=== PATIENT | female | born 2005 | race Caucasian/White ===

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

== ENCOUNTER 2023-07-06 12:14 | Emergency (ER) | payer BC, SELFPAY ==
--- NOTE | ~2023-07-06 | XR_ITS ---
XR hip LT min 2V 07/06/2023 12:58 INDICATION: Left hip pain after fall PROCEDURE: 2 views left hip COMPARISON: No prior studies for comparison. FINDINGS: Fracture, dislocation or subluxation is not identified. The soft tissues appear within norm al limits. No foreign bodies are identified. IMPRESSION: 1: NO ACUTE BONE OR JOINT ABNORMALITY IDENTIFIED. Reviewed, dictated and finalized at location B.
[2023-07-06 12:26] VITALS: BP 106/63; PULSE 87; RESP 16; TEMP 36.6; O2SAT 100
[2023-07-06 12:29] VITALS: BP 106/63; PULSE 87; RESP 16; TEMP 36.6; O2SAT 100
--- NOTE | 2023-07-06 12:46 | ED.FALL ---
HPI - Fall General Chief Complaint: Fall Stated Complaint: fell at work, left hip and back pain Time Seen by Provider: 07/06/23 12:38 Source: patient and RN notes reviewed Mode of arrival: ambulatory Limitations: no limitations History of Present Illness HPI Narrative: Patient presents today complaining of left low back pain and left hip pain. She slipped in a puddle of water yesterday while at work and fell onto her left side. States her low back did not start hurting until today. Denies numbness or tingling in the legs or genitalia. Denies loss of bowel or bladder control. Denies radiation of the pain. She currently rates her pain 7/10 and has been taking ibuprofen and using a heating pad without relief. Pain increases with movement. Related Data Home Medications Medication Instructions Recorded Confirmed medroxyprogesterone 150 mg/mL 150 mg IM [id number] 11/05/21 07/06/23 intramuscular suspension escitalopram oxalate 20 mg tablet 20 mg PO DAILY 07/06/23 07/06/23 hydroxyzine HCl 25 mg tablet 25 mg PO TID PRN Sleep 07/06/23 07/06/23 Allergies Allergy/AdvReac Type Severity Reaction Status Date / Time No Known Allergies Allergy Verified 07/06/23 12:26 Review of Systems Review of Systems: CONSTITUTIONAL: Denies body aches, fever, chills, or sweats. EYES: Denies visual changes, redness, or discharge. ENT: Denies rhinorrhea, congestion, sore throat, or otalgia. CARDIOVASCULAR: Denies chest pain, palpitations, or edema. RESPIRATORY: Denies cough or dyspnea. GASTROINTESTINAL: Denies abdominal pain, nausea, vomiting, or diarrhea. GENITOURINARY: Denies dysuria or hematuria. SKIN: Denies rash, itching, or wounds. MUSCULOSKELETAL: + back pain, left hip pain NEUROLOGIC: Denies headache, numbness, tingling, or weakness. PSYCH: Denies depression or anxiety. [facility] Past Medical History Medical History No significant medical problems Surgical History Surgical History No significant past surgical history Social History Social History Living arrangements: with family Gender identity (if verbalized by the patient): Female Comments At time of signature, I have reviewed and agree with nursing past medical, surgical, social and family history unless otherwise noted. Please see nursing chart for further information. There is no relevant family history pertinent to the presenting complaint Exam Narrative: GENERAL: Well-appearing, well-nourished, and in no acute distress. HEAD: Normocephalic, atraumatic. EYES: EOMI. No redness or drainage. Conjunctivae normal. ENT: Mucous membranes pink and moist. NECK: Normal AROM. CHEST: No respiratory distress. MUSCULOSKELETAL: No bony tenderness of the spine. Left lower lumbar paraspinal muscle tenderness. Patient also has bony tenderness to the left lateral hip without edema, ecchymosis, deformity. Full range of motion of the hip with some increased pain. Distal sensation intact. Saddle sensation intact. Capillary refill normal. Pedal pulses normal. SKIN: Warm, dry, no rash. Capillary refill normal. Normal skin turgor. NEURO: No focal deficits. Alert and oriented x3. Gait steady. PSYCH: Normal affect. No signs of depression or anxiety. Course Course Level of Care: Express Care Visit Vital Signs Vital signs: Vital Signs Temperature 97.9 F 07/06/23 12:26 Pulse Rate 87 07/06/23 12:26 Respiratory Rate 16 07/06/23 12:26 Blood Pressure 106/63 07/06/23 12:26 Pulse Oximetry 100 07/06/23 12:26 Oxygen Delivery Room Air 07/06/23 12:26 Temperature 97.9 F 07/06/23 12:29 Pulse Rate 87 07/06/23 12:29 Respiratory Rate 16 07/06/23 12:29 Blood Pressure 106/63 07/06/23 12:29 Pulse Oximetry 100 07/06/23 12:29 Oxygen Delivery Room Air
== END 2023-07-06 13:33 | disposition home or self-care (01) ==
PROVIDERS: Emergency Provider Nurse Practitioner; PCP Family Medicine
DX: S70.02XA Contusion of left hip, initial encounter (principal); S39.012A Strain of muscle, fascia and tendon of lower back, initial encounter; W01.0XXA Fall on same level from slipping, tripping and stumbling without subsequent striking against object, initial encounter; Y99.0 Civilian activity done for income or pay; K21.9 Gastro-esophageal reflux disease without esophagitis; F41.9 Anxiety disorder, unspecified; F32.A Depression, unspecified
CPT/HCPCS: 73502; 99213; G0463

== ENCOUNTER 2023-08-22 13:15 | Emergency (ER) | payer BC, SELFPAY ==
--- NOTE | ~2023-08-22 | XR_ITS ---
XR finger 3rd RT min 2V DATE: 08/22/2023 13:43 INDICATION: Dog bite at third digit proximal interphalangeal joint area one week ago TECHNIQUE: 3 views COMPARISON: None FINDINGS: There is moderate soft tissue swelling of the proximal and mid third digit. No radiopaque s oft tissue foreign body or subcutaneous emphysema is detected. No fracture or dislocation, periosteal reaction or bone destruction. The proximal and distal interphalangeal joints as well as third throug h fifth metacarpophalangeal joints are intact. IMPRESSION: Soft tissue swelling of third digit; no radiopaque foreign body, subcutaneous emphysema o r bony abnormality Reviewed, dictated and finalized at location A. IMPRESSION: Soft tissue swelling of third digit; no radiopaque foreign body, dasilva bcutaneous emphysema or bony abnormality
[2023-08-22 13:29] VITALS: BP 131/87; PULSE 92; RESP 16; TEMP 36.8; O2SAT 99
--- NOTE | 2023-08-22 13:29 | ED.ANIMALBIT ---
HPI - Animal Bite General Chief Complaint: Wound/Laceration Stated Complaint: Dog Bite Time Seen by Provider: 08/22/23 13:21 Source: patient Mode of arrival: ambulatory Limitations: no limitations History of Present Illness HPI narrative: Dorothea is a 18-year-old female patient presenting to clinic today with complaints a dog bite to her right middle finger and her distal right 4th finger. He reports that this bite happened 1 week ago. Tetanus is up-to-date. Is having some pain and swelling to the did PIP joint over the right 3rd finger and swelling to the distal phalanx of the right 4th finger. Related Data Home Medications Medication Instructions Recorded Confirmed medroxyprogesterone 150 mg/mL 150 mg IM [id number] 11/05/21 07/06/23 intramuscular suspension escitalopram oxalate 20 mg tablet 20 mg PO DAILY 07/06/23 07/06/23 hydroxyzine HCl 25 mg tablet 25 mg PO TID PRN Sleep 07/06/23 07/06/23 amoxicillin 500 mg capsule mg 08/22/23 Allergies Allergy/AdvReac Type Severity Reaction Status Date / Time No Known Allergies Allergy Verified 08/22/23 13:26 Review of Systems Review of Systems: Pertinent positives per HPI. Patient denies any fever, chills, rash, headache, visual changes, dizziness, cough, runny nose, sore throat, shortness of breath, chest pain, palpitations, nausea, vomiting, diarrhea, constipation, abdominal pain, or any urinary issues. PMFSH Past Medical History Medical History No significant medical problems Surgical History Surgical History No significant past surgical history Social History Social History Living arrangements: with family Gender identity (if verbalized by the patient): Female Comments At the time of my signature, I reviewed and agree with the nursing past medical, surgical, social, and family history. There is no relevant family history pertinent to the patient complaint. Exam Narrative: General: Well-developed, well nourished, in no apparent distress Head: Normocephalic, atraumatic. Cardio: Regular rate and rhythm, s1 and s2 normal, no murmur appreciated. Resp: Clear to auscultation bilaterally, no rhonchi, rales, wheezing or rubs. Musculoskeletal: No deformity, swelling and bruising with mild redness noted to the PIP joint of the right 3rd finger and bruising, redness, and swelling with a healing puncture wound to the volar aspect of the right distal finger, tender to palpation over these areas, limited range of motion due to PIP joint swelling of the right 3rd finger, muscle strength strong and equal, peripheral pulse strong, no edema, no cyanosis, normal gait and station Course Course Emergency Course: Portions of this record may have been created with voice recognition software. Level of Care: Express Care Visit Vital Signs Vital signs: Vital signs reviewed MDM - Animal Bite MDM Narrative Medical decision making narrative: At the time of visit patient is resting comfortably on the exam table. I suspect patient may have a infected puncture wound to the right distal finger and bruising and swelling noted over the right PIP joint x-ray was obtained and negative for any sign of fracture or malalignment. Will place patient on Augmentin and have her follow-up with her PCP in 3-5 days. Supportive measures were discussed with the patient she voiced understanding discharge instructions agrees to treatment plan. Differential Diagnosis Differential diagnosis: Likely dog bite and other (Infected puncture wound, finger fracture) Imaging Data Radiologist's impression: ITS Impressions Finger X-Ray 08/22/23 13:47 IMPRESSION: Soft tissue swelling of third digit; no radiopaque foreign body, subcutaneous emphysema or bony abnormality Discharge Plan Discharge Clinical Imp
== END 2023-08-22 14:06 | disposition home or self-care (01) ==
PROVIDERS: Emergency Provider Nurse Practitioner Family; PCP Family Medicine
DX: S61.232A Puncture wound without foreign body of right middle finger without damage to nail, initial encounter (principal); L08.9 Local infection of the skin and subcutaneous tissue, unspecified; W54.0XXA Bitten by dog, initial encounter
CPT/HCPCS: 73140; 99213; G0463